=== PATIENT | male | born 1970 | race Caucasian/White ===

== ENCOUNTER 2020-12-25 08:18 | Day surgery (SDC) | payer OTHER ==
[~2020-12-25] VITALS: Ht 182.9 cm; Wt 81.8 kg
[~2020-12-25 08:18] MED LIST: Prinivil10 MG PO; SERT100 PO; ZYRTEC10 M2 PO
== END 2020-12-25 10:29 | disposition home or self-care (01) ==
LOC: ORSCSDS 08:18
PROVIDERS: Student in an Organized Health Care Education/Training Program
PROC: 0DBN8ZX Excision of Sigmoid Colon, Via Natural or Artificial Opening Endoscopic, Diagnostic (ICD-10-PCS; principal; 2020-12-25 09:30)
DX: Z12.11 Encounter for screening for malignant neoplasm of colon (principal); D12.5 Benign neoplasm of sigmoid colon; I10 Essential (primary) hypertension; F41.8 Other specified anxiety disorders; H81.09 Meniere's disease, unspecified ear; Z79.899 Other long term (current) drug therapy; K64.4 Residual hemorrhoidal skin tags; K64.8 Other hemorrhoids
CPT/HCPCS: 88305; J2704; J7120

== ENCOUNTER 2021-01-21 07:15 | Day surgery (SDC) | payer OTHER ==
[~2021-01-21] VITALS: Ht 182.9 cm; Wt 83.9 kg
--- NOTE | 2021-01-21 08:05 | NUR ---
Ambulatory in Day Surgery History, Chart, Medications and Allergies reviewed before start of procedure. Lungs clear T/O to Auscultation. Patient confirms NPO status and agrees with scheduled surgery.
--- NOTE | 2021-01-21 10:29 | NUR ---
1017 to step, S/P anal skin tag removal and hemmorhoidectomy. patient awake alert having no pain or nausea.VS stable
--- NOTE | 2021-01-21 11:33 | NUR ---
1130 discharge to home. written and verbal instructs reviewed with patient and then over the phone. to car via w/c and care turned over to
== END 2021-01-21 23:07 | disposition home or self-care (01) ==
LOC: ORSCMMR 07:15 → ORD 08:45 → ORSCMMR 23:07
PROVIDERS: Surgery
PROC: 06BY0ZC Excision of Hemorrhoidal Plexus, Open Approach (ICD-10-PCS; principal; 2021-01-21 08:45)
DX: K64.4 Residual hemorrhoidal skin tags (principal); K64.8 Other hemorrhoids; I10 Essential (primary) hypertension; Z87.891 Personal history of nicotine dependence; F41.8 Other specified anxiety disorders; Z79.899 Other long term (current) drug therapy
CPT/HCPCS: 88304; A9270; J1100; J1885; J2250; J2405; J2704; J3010; J7120

== ENCOUNTER 2025-02-07 19:58 | Emergency (ER) | payer OTHER ==
[~2025-02-07] VITALS: Ht 172.7 cm; Wt 72.6 kg
[2025-02-07 20:05] VITALS: BP 158/86
== END 2025-02-07 20:24 | disposition home or self-care (01) ==
LOC: ER 19:58
DX: S61.311A Laceration without foreign body of left index finger with damage to nail, initial encounter (principal); W26.0XXA Contact with knife, initial encounter; Z87.891 Personal history of nicotine dependence; Z79.899 Other long term (current) drug therapy; Z79.1 Long term (current) use of non-steroidal anti-inflammatories (NSAID)
CPT/HCPCS: 99282